=== PATIENT | female | born 1980 | race American Indian/Alaskan Native ===

== ENCOUNTER 2018-03-23 10:58 | Emergency (ER) | payer OTHER ==
[~2018-03-23] VITALS: Ht 162.6 cm; Wt 63.6 kg
[2018-03-23] MEDS ORDERED: diphenhydrAMINE 50 mg/ml inj IM ONE (11:00)
[2018-03-23] MEDS ORDERED: OLANZapine **IM** 10 mg inj. IM ONE (11:00)
[2018-03-23] MEDS ORDERED: LORazepam 2 mg/ml vial IM ONE (11:00)
--- NOTE | 2018-03-23 11:12 | NUR ---
PT BROUGHT BACK TO OVERFLOW 20 AND STARTED SCREAMING AND ACTING AGGRESSIVELY, JACQUI CHARGE TO BEDSIDE, PT PLACED IN RESTRAINTS AND MEDICATED PER ORDERS WITH ZYPREXA, ATIVAN, AND BENADRYL, PT FLAILING IN BED AND YELLING OUT, PT MOVED BACK TO MAIN ED TO BE TRIAGED, LABS DRAWN AND URINE TO BE OBTAINED.
--- NOTE | 2018-03-23 11:21 | NUR ---
PT. PLACED IN BEHAVIOR RESTRAINTS FOR OUR SAFTY AND HERS. PT. YELLING AND KICKING SCREAMING AT STAFF.... BREAKING OUT INTO LAUGHTER, SCREAMING ABOUT RAPING BABIES AND BURNING THEM.... PT. YELLING THAT SHE IS A WITCH AND GOES IN WEARED CHANTING... THEN BACK TO KICKING, SWEARING, LUNGING AT STAFF.
[2018-03-23 11:40] LABS: BASOPHILS % (AUTO) 0.2 % (0-1); EOSINOPHILS # (AUTO) 0.2 X10'3 (0-0.9); EOSINOPHILS % (AUTO) 1.5 % (0-6); MEAN CORPUSCULAR HEMOGLOBIN 30.4 PG (27.0-31.0); MEAN CORPUSCULAR HGB CONC 33.3 g/dL (33.0-36.5); MEAN CORPUSCULAR VOLUME 91.4 FL (78-98); MEAN PLATELET VOLUME 7.5 FL (7.4-10.4); MONOCYTES # (AUTO) 0.8 X10'3 (0-0.9); MONOCYTES % (AUTO) 5.6 % (2-12); NEUTROPHILS # (AUTO) 10.8 X10'3 (1.8-7.7); NEUTROPHILS % (AUTO) 72.7 % (42-75); PLATELET COUNT 271 X10'3 (140-440); RED BLOOD COUNT 4.93 X10'6 (4.20-5.60); WHITE BLOOD COUNT 14.9 X10'3 (4.5-11.0)
--- NOTE | 2018-03-23 11:45 | NUR ---
PATIENT APPEARED TO BE RESTING COMFORTABLY: EYES CLOSED, NOT MOVING, UPON ENTERING THE ROOM, I TURNED THE LIGHTS ON, PATIENT STARTED SCREAMING INCOMPREHENSIBLE WORDS AND FIGHTING, THRASHING ALL EXTREMITIES VIOLENTLY. DID NOT CALM DOWN TO REASSURANCE. SECURITY IN ROOM. PATIENT IN 4 POINT RESTRAINTS. LEFT AC SL 20 GAUGE STARTED WITH LABS DRAWN FROM IV START. STRAIGHT CATH DONE; PERICARE WITH WIPES PRIOR TO STRAIGHT CATH; PATIENT IS MENSTRUATING, PATIENT'S CLOTHES REMOVED: SOAKING WET, CLEANED AND DRIED SKIN; PLACED IN A GREEN GOWN
[2018-03-23 11:54] LABS: ALANINE AMINOTRANSFERASE 27 U/L (12-78); ALKALINE PHOSPHATASE 107 IU/L (46-116); ANION GAP 15 (8-16); ASPARTATE AMINO TRANSFERASE 20 U/L (10-37); BILIRUBIN,TOTAL 0.6 MG/DL (0.1-1.0); BLOOD UREA NITROGEN 15 MG/DL (7-18); BUN/CREATININE RATIO 15.6 (6.6-38.0); CALCIUM 8.9 MG/DL (8.5-10.1); CHLORIDE 103 MMOL/L (99-107); CREATININE 0.96 MG/DL (0.40-0.90); GLUCOSE 135 MG/DL (70-104); POTASSIUM 3.4 MMOL/L (3.5-5.1); SODIUM 140 MMOL/L (135-145); TOTAL CARBON DIOXIDE 22.1 MMOL/L (24-32); TOTAL PROTEIN 7.9 G/DL (6.4-8.2); eGFR 65 ML/MIN
[2018-03-23 12:02] LABS: CLARITY,URINE SLIGHTLY CLOUDY (Clear); COLOR,URINE YELLOW (Yellow); GLUCOSE, URINE NEGATIVE (Neg); KETONES,URINE TRACE mg/dl (Neg); LEUKOCYTE ESTERASE ,URINE NEGATIVE (Neg); NITRITES, URINE NEGATIVE (Neg); OCCULT BLOOD,URINE LARGE (Neg); PROTEIN,URINE 30 mg/dl (Neg); UROBILINOGEN,URINE 0.2 E.U/dL (0.2-1.0)
[2018-03-23 12:03] LABS: ETHANOL < 0.010 GM/DL (0.0-0.010)
[2018-03-23 12:03] LABS: UA COLLECTION TYPE STRAIGHT CATH
--- NOTE | 2018-03-23 12:10 | NUR ---
Pt sedated, snoring respirations with sats 100% on room air. Eyes closed and calm. Bilat leg restraints removed. No signs of injury on ankles. Left in 2 point at wrists and will remove if patient remains calm.
[2018-03-23 12:12] LABS: MUCUS STRANDS MANY /LPF (Neg); SQUAMOUS EPITHELIAL CELL,UR MANY /LPF (FEW); URINE AMPHETAMINE SCREEN NEGATIVE (Neg); URINE BARBITUATE SCREEN NEGATIVE (Neg); URINE BENZODIAZEPINES SCREEN NEGATIVE (Neg); URINE CANNABINOID SCREEN POSITIVE (Neg); URINE COCAINE SCREEN NEGATIVE (Neg); URINE METHADONE SCREEN NEGATIVE (Neg); URINE OPIATE SCREEN NEGATIVE (Neg); URINE PHENCYCLIDINE SCREEN NEGATIVE (Neg)
[2018-03-23 12:19] LABS: BACTERIA,URINE FEW /HPF (Neg); WBC,URINE 0-4 /HPF (0-4)
[2018-03-23 12:26] LABS: URINE HCG NEGATIVE (NEG)
[2018-03-23] MEDS ORDERED: normal saline 1000ml 1,000 ML IV ONE (12:40)
--- NOTE | 2018-03-23 13:38 | NUR ---
PT MOVED FROM BED 12 TO BED 20 BY [employer], PT IS SLEEPING AND HAS IV FLUIDS RUNNING CURRENTLY, PT ARRIVED WITH ONLY BOTH WRIST IN RESTRAINTS, UPON ARRIVAL HAD JP FROM SECURITY REMOVE RESTRAINT FROM LEFT WRIST, ONLY RIGHT WRIST REMAINS IN RESTRAINT AT THIS TIME PT HAS IV IN LEFT ARM, ONCE FLUIDS ARE COMPLETE WILL HAVE LAST RESTRAINT REMOVED. PT IS SLEEPING, RESPIRATIONS SPONTANEOUS, EVEN AND UNLABORED, NO S/S OF DISTRESS, DISCOMFORT OR AGITATION.
--- NOTE | 2018-03-23 13:40 | NUR ---
DID NOT RECEIVE REPORT FROM RN, NO ASSESSMENT COMPLETED FOR ME TO REVIEW AT THIS TIME.
--- NOTE | 2018-03-23 13:56 | NUR ---
RECIEVED CALL FROM SKY THAT SHE ORDERED A REPEAT CBC, CALLED LAB INFORMED THEM ABOUT LAB ORDERS WILL SEND LAB TO BED 20.
--- NOTE | 2018-03-23 14:03 | NUR ---
BLOOD DRAWN FROM PT IV PER LAB REQUEST, LABS DRAWN FROM IV FOR TOWERMAN, REGULAR MEAL TRAY ORDERED FOR PT.
--- NOTE | 2018-03-23 14:15 | NUR ---
PT RIGHT HAND REMOVED FROM RESTRAINT, PT IS CURRENTLY FREE FROM RESTRAINTS, PT IS SLEEPING, RESPIRATIONS SPONTANEOUS, EVEN ADN UNLABORED, NO S/S OF DISTRESS, DISCOMFORT OR AGITATION
[2018-03-23 14:35] LABS: BASOPHILS % (AUTO) 0.3 % (0-1); EOSINOPHILS # (AUTO) 0.2 X10'3 (0-0.9); EOSINOPHILS % (AUTO) 1.7 % (0-6); HEMATOCRIT 39.7 % (35.0-45.0); HEMOGLOBIN 13.2 g/dl (12.0-16.0); LYMPHOCYTES # (AUTO) 2.5 X10'3 (1.1-4.8); LYMPHOCYTES % (AUTO) 19.2 % (21-51); MEAN CORPUSCULAR HEMOGLOBIN 30.4 PG (27.0-31.0); MEAN CORPUSCULAR HGB CONC 33.2 g/dL (33.0-36.5); MEAN CORPUSCULAR VOLUME 91.6 FL (78-98); MEAN PLATELET VOLUME 7.7 FL (7.4-10.4); MONOCYTES # (AUTO) 1.1 X10'3 (0-0.9); MONOCYTES % (AUTO) 8.1 % (2-12); NEUTROPHILS # (AUTO) 9.2 X10'3 (1.8-7.7); NEUTROPHILS % (AUTO) 70.7 % (42-75); PLATELET COUNT 218 X10'3 (140-440); RED BLOOD COUNT 4.34 X10'6 (4.20-5.60); RED CELL DISTRIBUTION WIDTH 13.3 % (11.5-14.5)
--- NOTE | 2018-03-23 15:19 | NUR ---
PT SLEEPING ON RIGHT SIDE, RESPIRATIONS SPONTANEOUS, EVEN AND UNLABORED, NO S/S OF DISTRESS, DISCOMFORT, OR AGITATION, PT IN LINE OF SITE OF THE NURSES STATION WITH TWO RN AND 1 SITTER.
--- NOTE | 2018-03-23 18:30 | NUR ---
ASSUMED PT CARE, REPORT RECEIVED, PT NOT IN RESTRAINTS AT THIS TIME, AWAKE AND RESPONDING TO QUESTIONS, STATES SHE WAS JUST "SLEEP WALKING."
[2018-03-23] MEDS ORDERED: NO HOME MEDS (18:57)
--- NOTE | 2018-03-23 19:37 | NUR ---
TELE PSYCH CONSULT INITIATED
--- NOTE | 2018-03-23 21:55 | NUR ---
PT C/O ANNA, MOTRIN 400MG PO GIVEN
[2018-03-23] MEDS: ziprasidone 20mg capsule PO SCH (22:45)
[2018-03-23] MEDS ORDERED: ziprasidone 20mg capsule PO SCH (22:45)
[2018-03-23] MEDS: ziprasidone IM 20mg inj **IM only IM SCH (22:45)
--- NOTE | 2018-03-24 07:53 | NUR ---
PT'S SISTER CALLS TO CHECK UP ON PT. EXPLAIN TO HER THE PROCEDURE THE PTS GO THROUGH TO GET EVALUATED AND POSSIBLY PLACED. PT LEAVES HER NAME AND PHONE NUMBER AND WILL CONTINUE TO CHECK BACK FOR PT UPDATES/STATUS.
--- NOTE | 2018-03-24 07:54 | NUR ---
PT'S SISTER" CHIDI LARA PHONE: [phone]
[2018-03-24] MEDS: ziprasidone IM 20mg inj **IM only IM SCH (08:00)
[2018-03-24] MEDS: ziprasidone 20mg capsule PO SCH (08:00)
--- NOTE | 2018-03-24 08:30 | NUR ---
PT SITTING UP EATING HER BREAKFAST
[2018-03-24] MEDS ORDERED: OLANZapine 2.5MG tablet PO SCH (08:55)
[2018-03-24] MEDS: ibuprofen tablet 400 MG TABLET PO PRN ×2 (09:08→19:34)
--- NOTE | 2018-03-24 09:16 | NUR ---
PT REPORTS THAT SHE IS STILL HAVING VISIONS AND IS TALKING TO HERSELF. PT ASKING FOR SOMETHING FOR PAIN, ADMIN MOTRIN ORDERED. WILL MONITOR PT FOR INCREASE IN AGITATION.
--- NOTE | 2018-03-24 10:00 | NUR ---
PT IS SLEEPING, NO S/S AGITATION AND OR HALLUCINATIONS.
--- NOTE | 2018-03-24 13:06 | NUR ---
PT AWAKE AND GETTING LUNCH TRAY.
[2018-03-24] MEDS: nicotine 14mg patch - 24hr TD SCH (19:34)
[2018-03-24] MEDS: OLANZapine 2.5MG tablet PO SCH (19:34)
--- NOTE | 2018-03-24 19:46 | NUR ---
The patient is resting on her bed quietly. She ate 100% of her dinner. She asked for a bible which was given to her and supplies to write with. She was guarded in the evening assessment and refused to answer simple questions ie how much do you smoke per day. She then began rambling about her delusional belief that her children are missing and might be in danger. She insists that she find her children and that all of their names, ages and dates of be written down. She then stated her belief that children are being burned out side of the city limits of [place]. She also stated, "You know what happened to [place]? Everyone is missing!" Her medications were reviewed with the MD and med orders were clarified.
--- NOTE | 2018-03-24 22:41 | NUR ---
The patient appears to be asleep.
--- NOTE | 2018-03-25 00:40 | NUR ---
The patient appears to be asleep at this time
--- NOTE | 2018-03-25 02:44 | NUR ---
The patient is awake with the bible in front of her. She is gesturing and talking to heself.
--- NOTE | 2018-03-25 04:56 | NUR ---
Report to [facility] in [place] and they are requesting an H&P with a review of systems prior to presenting to their MD.
--- NOTE | 2018-03-25 04:56 | NUR ---
The patient is awake and looking up at the ceiling and making facial grimaces.
--- NOTE | 2018-03-25 05:06 | NUR ---
Dr. Beth made aware of [facility]'s request for updated H&P
[2018-03-25] MEDS: OLANZapine 2.5MG tablet PO SCH ×2 (08:00→20:54)
[2018-03-25] MEDS ORDERED: LORazepam 2 mg/ml vial IM ONE (08:00)
[2018-03-25] MEDS ORDERED: ziprasidone IM 20mg inj **IM only IM ONE (08:00)
--- NOTE | 2018-03-25 08:00 | NUR ---
Patient observed coloring while sitting in bed. She introduces herself to this RN. Linda does not make eye contact but has a friendly demeanor. She quetly eats her breakfast.
[2018-03-25] MEDS: nicotine 14mg patch - 24hr TD SCH ×2 (08:16→20:54)
--- NOTE | 2018-03-25 10:00 | NUR ---
Patient anxious, pacing, and swinging arms. She is observed talking to self stating "the children, what their doing to the childre." She attempts to calm herself by taking deeps breaths. PRN Geodon 20mg and Ativan 2mg IM administered.
--- NOTE | 2018-03-25 12:00 | NUR ---
Patient observed resting, in no apparant distress.
[2018-03-25] MEDS: ibuprofen tablet 400 MG TABLET PO PRN (13:41)
--- NOTE | 2018-03-25 14:13 | NUR ---
Patient awoke to eat her lunch. She stated that she was happy to get some rest. She reports that she was brought in because she was sleep walking and was angry. She states that she is sore and has a headache. PRN motrin administered as prescribed. Patient requests to wash her body and hair, wipes provided and shampoo cap done.
--- NOTE | 2018-03-25 14:47 | NUR ---
PT RESTING ON BACK EYES CLOSED RR EQUAL AND UNLABORED
--- NOTE | 2018-03-25 16:01 | NUR ---
Patient resting in bed, no stress observed.
--- NOTE | 2018-03-25 17:47 | NUR ---
Saline lock removed. Patient states that she feels a little better but begins to cry. 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 She states that this has been draining for her and she understands that she needs rest. Delusional thought content present as she discusses how all the children in [place] have burnt and are burning in the fire. Linda says that she is happy she is here to heal herself.
--- NOTE | 2018-03-26 03:11 | NUR ---
Patient up to nurses station, requested "a pen", informed her only crayons available, stated "they were letting me have a pen", reiterated no pens available. Patient walked away and started waving arms all over and mumbling to self, went into bathroom and wet her hair, then boxed up crayons at bedside and brought them to nurses station along with her drawings which she ripped up and threw in garbage before returning to bed.
--- NOTE | 2018-03-26 04:20 | NUR ---
Park from [facility] called, questioned whether 3.4 potassium has been treated or rechecked, informed her neither, stated patient accepted (pending discharges today) but they want 3.[address] Her notified, stated she will place order for oral potassium, will not redraw labs.
[2018-03-26] MEDS ORDERED: potassium chloride 10mEq CAPSULE.SA PO SCH (05:40)
[2018-03-26] MEDS ORDERED: potassium Cl 20 mEq SR tablet PO SCH (05:43)
[2018-03-26] MEDS ORDERED: potassium Cl 20 mEq SR tablet PO ONE (05:45)
[2018-03-26 05:46] VITALS: BP 149/88
[2018-03-26] MEDS: ibuprofen tablet 400 MG TABLET PO PRN (05:48)
[2018-03-26] MEDS: OLANZapine 2.5MG tablet PO SCH (08:29)
[2018-03-26] MEDS: nicotine 14mg patch - 24hr TD SCH (08:30)
--- NOTE | 2018-03-26 09:15 | NUR ---
[facility]VD REPORT, PT IS CURRENTLY IN THE BATHROOM, TECH CHECKING ON HER, SHE RESPONDED APPROPRIATELY
--- NOTE | 2018-03-26 10:12 | NUR ---
PT IS SITTING UP IN BED, BRUSHING HER HAIR, APPEARS CALM
--- NOTE | 2018-03-26 10:58 | NUR ---
pt is in bed supine, reading the Bible, she appears calm, no s/s of distress observed
--- NOTE | 2018-03-26 11:46 | NUR ---
rcvd call from [facility], pt has been accepted to [facility], she will be picked up at about 1430
--- NOTE | 2018-03-26 12:11 | NUR ---
pt is in bed on the phone, with her sister, appears calm and positive conversation
--- NOTE | 2018-03-26 12:18 | NUR ---
py is pacing now, went over ti use hand sanitiser multiple times
--- NOTE | 2018-03-26 13:00 | NUR ---
pt is in bed supine, playing with her hair, she is calm no agitation apparent, breathing regular
--- NOTE | 2018-03-26 14:15 | NUR ---
pt in bed, supine, still playing with her hair
== END 2018-03-26 15:35 ==
LOC: ER 10:59 → EDBD 10:59 → ER 03-26 15:35
DX: F29 Unspecified psychosis not due to a substance or known physiological condition (principal); Z88.5 Allergy status to narcotic agent
CPT/HCPCS: 36415; 80053; 80305; 80320; 81001; 81025; 84443; 85025; 96372; 99285; J1200; J2060; J7030